=== PATIENT | female | born 1945 | race African-American/Black ===

== ENCOUNTER 2025-09-15 18:09 | Inpatient (IN) | payer BC ==
[~2025-09-15] VITALS: Ht 154.9 cm; Wt 81.8 kg
[2025-09-15 18:27] VITALS: O2SAT 94
[2025-09-15] MEDS: FUROSEMIDE 20MG/2ML VIAL IVP ONE (21:20)
[2025-09-15 21:23] LABS: BASOPHILS % 0.4 % (0.0-2.0); EOSINOPHILS % 0.0 % (0.0-5.0); HEMATOCRIT. 34.7 % (36.0-48.0); HEMOGLOBIN. 10.3 g/dL (12.0-16.0); LYMPHOCYTES % 11.0 % (20.0-50.0); MEAN PLATELET VOLUME 8.5 fl (7.4-10.4); MONOCYTES % 6.2 % (2.0-8.0); NEUTROPHILS % 82.4 % (40.0-76.0); PLATELET 179 x1000/uL (130-400); RED BLOOD CELL COUNT 3.61 mill/uL (4.2-5.4); RED CELL DISTRIBUTION WIDTH 18.9 % (11.6-14.6)
[2025-09-15 21:40] LABS: CREATININE 1.4 mg/dL (0.6-1.0)
[2025-09-15 21:41] LABS: TROPONIN I HIGH SENSITIVITY 24 ng/L (3.0-34); UREA NITROGEN BLOOD 32 mg/dL (9-23)
[2025-09-15 21:42] LABS: ASPARTATE AMINOTRANSFERASE 20 IU/L (<34)
[2025-09-15 21:43] LABS: BILIRUBIN DIRECT 0.1 mg/dL (<=3.0); BILIRUBIN TOTAL 0.4 mg/dL (0.1-1.0); PROTEIN TOTAL 6.0 g/dL (6.0-8.3)
[2025-09-15] MEDS ORDERED: MAGNESIUM/ALUMINUM HYDROXIDE/SIMETHICONE 30ML UDC PO PRN (23:45)
[2025-09-15] MEDS ORDERED: HYDROCODONE/ACETAMINOPHEN 5/325MG TABLET PO PRN (23:45)
[2025-09-15] MEDS ORDERED: CARV6.2548 PO (23:45)
[2025-09-15] MEDS ORDERED: IPRATROPIUM/ALBUTEROL 0.5-3(2.5)MG/3ML NEB NEB PRN (23:45)
[2025-09-15] MEDS ORDERED: AMLO10TA80 PO (23:45)
[2025-09-15] MEDS ORDERED: ACETAMINOPHEN 325MG TABLET PO PRN (23:45)
[2025-09-15] MEDS ORDERED: HYDR25TA78 PO (23:45)
[2025-09-15] MEDS ORDERED: APIX5TAB PO (23:45)
[2025-09-15] MEDS ORDERED: LOSA100T33 PO (23:45)
[2025-09-15] MEDS ORDERED: ZOLPIDEM TARTRATE 5MG TABLET PO PRN (23:45)
[2025-09-15] MEDS ORDERED: ATOR10TA69 PO (23:45)
[2025-09-15] MEDS ORDERED: ONDANSETRON HCL 4MG/2ML INJ IV PRN (23:45)
[2025-09-16] VITALS (7 sets, daily range): BP systolic 97–183; BP diastolic 57–92; PULSE 59–96; RESP 16–23; TEMP 35.6–36.5; O2SAT 93–99
[2025-09-16] MEDS: CLONIDINE 0.1MG TABLET PO PRN (00:04)
[2025-09-16 06:30] LABS: BASOPHILS % 0.2 % (0.0-2.0); EOSINOPHILS % 0.2 % (0.0-5.0); HEMATOCRIT. 32.8 % (36.0-48.0); HEMOGLOBIN. 10.0 g/dL (12.0-16.0); LYMPHOCYTES % 19.0 % (20.0-50.0); MEAN PLATELET VOLUME 9.0 fl (7.4-10.4); MONOCYTES % 10.4 % (2.0-8.0); NEUTROPHILS % 70.2 % (40.0-76.0); PLATELET 163 x1000/uL (130-400); RED BLOOD CELL COUNT 3.45 mill/uL (4.2-5.4); RED CELL DISTRIBUTION WIDTH 17.9 % (11.6-14.6)
[2025-09-16 07:06] LABS: CREATININE 1.3 mg/dL (0.6-1.0)
[2025-09-16 07:07] LABS: UREA NITROGEN BLOOD 27.0 mg/dL (9-23)
[2025-09-16] MEDS: AMLODIPINE 10MG TABLET PO SCH (08:30)
[2025-09-16] MEDS: LOSARTAN 100 MG TABLET PO SCH (08:30)
[2025-09-16] MEDS: CARVEDILOL 6.25 MG TABLET PO SCH (08:30)
[2025-09-16] MEDS: ATORVASTATIN CALCIUM 10MG TABLET PO SCH (08:30)
[2025-09-16] MEDS: APIXABAN 5 MG TABLET PO SCH (08:30)
[2025-09-16] MEDS: HYDRALAZINE HCL 25MG TABLET PO SCH (08:31)
[2025-09-16] MEDS ORDERED: ENOXAPARIN 40MG/0.4ML SYR SUBCUT SCH (09:00)
[2025-09-16] MEDS: PANTOPRAZOLE SODIUM 40 MG/VIAL IV SCH (09:20)
[2025-09-16] MEDS: FUROSEMIDE 40MG/4ML VIAL IVP SCH (09:20)
[2025-09-16 09:44] LABS: CLARITY URINE CLEAR (CLEAR); COLOR URINE YELLOW (YELLOW); GLUCOSE URINE NEGATIVE (NEGATIVE); KETONES URINE NEGATIVE (NEGATIVE); LEUKOCYTE ESTERASE URINE NEGATIVE (NEGATIVE); NITRITE URINE NEGATIVE (NEGATIVE); OCCULT BLOOD URINE NEGATIVE (NEGATIVE); PH URINE 5.5 (4.5-8.0); PROTEIN URINE 1+ (NEGATIVE); SPECIFIC GRAVITY URINE 1.013 (1.005-1.030); UROBILINOGEN URINE 0.2 E.U./dL (0.2-1.0)
[2025-09-16 09:55] LABS: SQUAMOUS EPITHELIAL CELL URINE FEW /lpf (RARE/1+)
[2025-09-16 09:56] LABS: MUCUS URINE 1+ /lpf (< = 2+)
[2025-09-16 09:57] LABS: RBC URINE NONE SEEN /hpf (0-2); WBC URINE 0-2 /hpf (0-2)
[2025-09-16 09:58] LABS: BACTERIA URINE 1+
[2025-09-16 10:09] LABS: *AMPHETAMINES SCREEN URINE NEGATIVE (NEGATIVE); *BARBITURATES SCREEN URINE NEGATIVE (NEGATIVE); *BENZODIAZEPINES SCREEN URINE NEGATIVE (NEGATIVE); *COCAINE SCREEN URINE NEGATIVE (NEGATIVE); METHADONE URINE SCREEN NEGATIVE (NEGATIVE)
[2025-09-16 10:10] LABS: CANNABINOID URINE SCREEN NEGATIVE (NEGATIVE); ECSTASY MDMA SCREEN URINE NEGATIVE (NEGATIVE); OPIATES URINE SCREEN NEGATIVE (NEGATIVE); PHENCYCLIDINE URINE SCREEN NEGATIVE (NEGATIVE)
[2025-09-16 17:07] LABS: TROPONIN I HIGH SENSITIVITY 24 ng/L (3.0-34)
[2025-09-16 19:30] LABS: TROPONIN I HIGH SENSITIVITY 27 ng/L (3.0-34)
[2025-09-16] MEDS: HYDRALAZINE HCL 50MG TABLET PO SCH (22:01)
[2025-09-17] VITALS: BP 105/69; PULSE 74; RESP 18; TEMP 36.5; O2SAT 95
[2025-09-17 04:00] VITALS: BP 140/75; PULSE 73; RESP 18; TEMP 36.6; O2SAT 97
[2025-09-17 06:35] LABS: BASOPHILS % 0.3 % (0.0-2.0); EOSINOPHILS % 1.2 % (0.0-5.0); HEMATOCRIT. 33.8 % (36.0-48.0); HEMOGLOBIN. 10.6 g/dL (12.0-16.0); LYMPHOCYTES % 21.3 % (20.0-50.0); MEAN PLATELET VOLUME 8.8 fl (7.4-10.4); MONOCYTES % 8.4 % (2.0-8.0); NEUTROPHILS % 68.8 % (40.0-76.0); PLATELET 161 x1000/uL (130-400); RED BLOOD CELL COUNT 3.61 mill/uL (4.2-5.4); RED CELL DISTRIBUTION WIDTH 17.9 % (11.6-14.6)
[2025-09-17 06:58] LABS: CREATININE 1.1 mg/dL (0.6-1.0); UREA NITROGEN BLOOD 20.0 mg/dL (9-23)
[2025-09-17 07:02] LABS: TRIGLYCERIDE 79.0 mg/dL (0-150)
[2025-09-17 07:03] LABS: LDL CHOLESTEROL 50.0 mg/dL (5-100)
[2025-09-17 08:00] VITALS: BP 161/83; PULSE 73; RESP 18; TEMP 35.6; O2SAT 96
[2025-09-17] MEDS: FUROSEMIDE 40MG/4ML VIAL IVP NR (09:49)
[2025-09-17 12:00] VITALS: BP 130/69; PULSE 82; RESP 18; TEMP 35.9; O2SAT 96
== END 2025-09-17 17:00 | disposition left against medical advice (07) | DRG 291 ==
LOC: ER 18:09 → 6WST 22:18 → EDBEDREQTM 22:25 → EDBEDREQ 22:25 → ENRESERV 22:36
PROVIDERS: ADMIT Internal Medicine; ATTEND Internal Medicine
DX: I11.0 Hypertensive heart disease with heart failure (principal); I50.33 Acute on chronic diastolic (congestive) heart failure; I27.20 Pulmonary hypertension, unspecified; C34.92 Malignant neoplasm of unspecified part of left bronchus or lung; Z79.01 Long term (current) use of anticoagulants; J44.9 Chronic obstructive pulmonary disease, unspecified; Z53.21 Procedure and treatment not carried out due to patient leaving prior to being seen by health care provider; I48.0 Paroxysmal atrial fibrillation; Z79.899 Other long term (current) drug therapy
CPT/HCPCS: 36415; 71045; 80048; 80061; 80076; 80305; 81003; 83735; 83880; 84443; 84484; 85025; 85379; 93005; 93970; 99285; J1938; J2470

== ENCOUNTER 2025-10-27 14:45 | Inpatient (IN) | payer BC ==
[~2025-10-27] VITALS: Ht 154.9 cm; Wt 79.4 kg
[~2025-10-27 14:45] MED LIST: AMLO10TA80 PO; APIX5TAB PO; ATOR10TA69 PO; CARV6.2548 PO; HYDR25TA78 PO; LOSA100T33 PO
[2025-10-27 16:20] LABS: BASOPHILS % 0.7 % (0.0-2.0); EOSINOPHILS % 0.3 % (0.0-5.0); HEMATOCRIT. 29.4 % (36.0-48.0); HEMOGLOBIN. 8.9 g/dL (12.0-16.0); LYMPHOCYTES % 20.7 % (20.0-50.0); MEAN PLATELET VOLUME 8.4 fl (7.4-10.4); MONOCYTES % 10.2 % (2.0-8.0); NEUTROPHILS % 68.1 % (40.0-76.0); PLATELET 276 x1000/uL (130-400); RED BLOOD CELL COUNT 3.10 mill/uL (4.2-5.4); RED CELL DISTRIBUTION WIDTH 19.6 % (11.6-14.6)
[2025-10-27 16:43] LABS: TROPONIN I HIGH SENSITIVITY 17 ng/L (3.0-34)
[2025-10-27 16:44] LABS: UREA NITROGEN BLOOD 24 mg/dL (9-23)
[2025-10-27 16:45] LABS: PROTEIN TOTAL 6.2 g/dL (6.0-8.3)
[2025-10-27 16:46] LABS: ASPARTATE AMINOTRANSFERASE 13 IU/L (<34); BILIRUBIN DIRECT 0.1 mg/dL (<=3.0); BILIRUBIN TOTAL 0.3 mg/dL (0.1-1.0)
[2025-10-27 17:00] LABS: CREATININE 1.7 mg/dL (0.6-1.0)
[2025-10-27] MEDS: FUROSEMIDE 40MG/4ML VIAL IVP ONE (18:02)
[2025-10-27 19:00] VITALS: BP 139/71; PULSE 93; RESP 18; TEMP 36.9; O2SAT 95
[2025-10-27 20:00] VITALS: BP 124/77; PULSE 91; RESP 19; TEMP 36.4; O2SAT 92
[2025-10-27 20:40] VITALS: BP 139/71; PULSE 89; RESP 22; TEMP 36.418
[2025-10-27] MEDS ORDERED: ZOLPIDEM TARTRATE 5MG TABLET PO PRN (22:00)
[2025-10-27] MEDS ORDERED: MAGNESIUM/ALUMINUM HYDROXIDE/SIMETHICONE 30ML UDC PO PRN (22:00)
[2025-10-27] MEDS ORDERED: CLONIDINE 0.1MG TABLET PO PRN (22:00)
[2025-10-27] MEDS ORDERED: ONDANSETRON HCL 4MG/2ML INJ IV PRN (22:00)
[2025-10-27] MEDS ORDERED: HYDROCODONE/ACETAMINOPHEN 5/325MG TABLET PO PRN (22:00)
[2025-10-27] MEDS ORDERED: NALOXONE HCL 0.4MG/ML VIAL IV PRN (22:15)
[2025-10-27] MEDS ORDERED: ENOXAPARIN 30MG/0.3ML SYR SUBCUT SCH (23:00)
[2025-10-28] VITALS (8 sets, daily range): BP systolic 105–146; BP diastolic 52–84; PULSE 61–92; RESP 15–19; TEMP 35.9–36.7; O2SAT 95–99
[2025-10-28] MEDS: APIXABAN 5 MG TABLET PO SCH (00:50)
[2025-10-28] MEDS: IPRATROPIUM/ALBUTEROL 0.5-3(2.5)MG/3ML NEB NEB SCH (02:00)
[2025-10-28 02:44] LABS: TROPONIN I HIGH SENSITIVITY 17 ng/L (3.0-34)
[2025-10-28] MEDS: FUROSEMIDE 40MG/4ML VIAL IVP SCH (06:38)
[2025-10-28 08:14] LABS: CLARITY URINE CLEAR (CLEAR); COLOR URINE YELLOW (YELLOW); GLUCOSE URINE NEGATIVE (NEGATIVE); KETONES URINE NEGATIVE (NEGATIVE); LEUKOCYTE ESTERASE URINE 2+ (NEGATIVE); NITRITE URINE POSITIVE (NEGATIVE); OCCULT BLOOD URINE 1+ (NEGATIVE); PH URINE 6.0 (4.5-8.0); PROTEIN URINE NEGATIVE (NEGATIVE); SPECIFIC GRAVITY URINE 1.008 (1.005-1.030); UROBILINOGEN URINE 0.2 E.U./dL (0.2-1.0)
[2025-10-28 08:33] LABS: HYALINE CASTS URINE 0-5 /lpf; MUCUS URINE 1+ /lpf (< = 2+)
[2025-10-28 08:34] LABS: RBC URINE 0-2 /hpf (0-2)
[2025-10-28 08:35] LABS: WBC URINE 0-2 /hpf (0-2)
[2025-10-28 08:36] LABS: BACTERIA URINE NONE SEEN; SQUAMOUS EPITHELIAL CELL URINE FEW /lpf (RARE/1+)
[2025-10-28 08:45] LABS: *AMPHETAMINES SCREEN URINE NEGATIVE (NEGATIVE); *BARBITURATES SCREEN URINE NEGATIVE (NEGATIVE); *BENZODIAZEPINES SCREEN URINE NEGATIVE (NEGATIVE); *COCAINE SCREEN URINE NEGATIVE (NEGATIVE)
[2025-10-28 08:46] LABS: CANNABINOID URINE SCREEN NEGATIVE (NEGATIVE); ECSTASY MDMA SCREEN URINE NEGATIVE (NEGATIVE); METHADONE URINE SCREEN NEGATIVE (NEGATIVE); OPIATES URINE SCREEN NEGATIVE (NEGATIVE); PHENCYCLIDINE URINE SCREEN NEGATIVE (NEGATIVE)
[2025-10-28] MEDS ORDERED: APIXABAN 5 MG TABLET PO SCH (09:00)
[2025-10-28] MEDS: LOSARTAN 100 MG TABLET PO SCH (09:15)
[2025-10-28] MEDS: AMLODIPINE 10MG TABLET PO SCH (09:16)
[2025-10-28] MEDS: CARVEDILOL 6.25 MG TABLET PO SCH (09:16)
[2025-10-28] MEDS: HYDRALAZINE HCL 25MG TABLET PO SCH (09:19)
[2025-10-28] MEDS: PANTOPRAZOLE SODIUM 40 MG/VIAL IV SCH (09:20)
[2025-10-28 12:42] LABS: BASOPHILS % 0.6 % (0.0-2.0); EOSINOPHILS % 0.6 % (0.0-5.0); HEMATOCRIT. 32.5 % (36.0-48.0); HEMOGLOBIN. 9.8 g/dL (12.0-16.0); LYMPHOCYTES % 21.8 % (20.0-50.0); MEAN PLATELET VOLUME 8.9 fl (7.4-10.4); MONOCYTES % 9.3 % (2.0-8.0); NEUTROPHILS % 67.7 % (40.0-76.0); PLATELET 288 x1000/uL (130-400); RED BLOOD CELL COUNT 3.43 mill/uL (4.2-5.4); RED CELL DISTRIBUTION WIDTH 19.5 % (11.6-14.6)
[2025-10-28 12:58] LABS: CREATININE 1.6 mg/dL (0.6-1.0); UREA NITROGEN BLOOD 23.0 mg/dL (9-23)
[2025-10-28 13:05] LABS: TROPONIN I HIGH SENSITIVITY 20 ng/L (3.0-34)
[2025-10-28] MEDS: ATORVASTATIN CALCIUM 10MG TABLET PO SCH (20:44)
[2025-10-28] MEDS: ACETAMINOPHEN 325MG TABLET PO PRN (23:27)
[2025-10-29] VITALS (11 sets, daily range): BP systolic 98–128; BP diastolic 50–78; PULSE 75–105; RESP 16–20; TEMP 36.1–37.7; O2SAT 95–99
[2025-10-29 08:10] LABS: BASOPHILS % 0.8 % (0.0-2.0); EOSINOPHILS % 0.4 % (0.0-5.0); HEMATOCRIT. 29.3 % (36.0-48.0); HEMOGLOBIN. 8.8 g/dL (12.0-16.0); LYMPHOCYTES % 27.1 % (20.0-50.0); MEAN PLATELET VOLUME 8.4 fl (7.4-10.4); MONOCYTES % 12.5 % (2.0-8.0); NEUTROPHILS % 59.2 % (40.0-76.0); PLATELET 259 x1000/uL (130-400); RED BLOOD CELL COUNT 3.12 mill/uL (4.2-5.4); RED CELL DISTRIBUTION WIDTH 19.1 % (11.6-14.6)
[2025-10-29 08:17] LABS: CREATININE 1.8 mg/dL (0.6-1.0); UREA NITROGEN BLOOD 24.0 mg/dL (9-23)
[2025-10-29] MEDS ORDERED: DEXA0.75 MT (10:59)
[2025-10-30] VITALS (7 sets, daily range): BP systolic 103–134; BP diastolic 50–83; PULSE 101–111; RESP 15–19; TEMP 36.4–37.2; O2SAT 92–100
[2025-10-30 08:40] LABS: BASOPHILS % 0.6 % (0.0-2.0); EOSINOPHILS % 0.8 % (0.0-5.0); HEMATOCRIT. 29.8 % (36.0-48.0); HEMOGLOBIN. 8.8 g/dL (12.0-16.0); LYMPHOCYTES % 21.9 % (20.0-50.0); MEAN PLATELET VOLUME 8.6 fl (7.4-10.4); MONOCYTES % 11.2 % (2.0-8.0); NEUTROPHILS % 65.5 % (40.0-76.0); PLATELET 226 x1000/uL (130-400); RED BLOOD CELL COUNT 3.04 mill/uL (4.2-5.4); RED CELL DISTRIBUTION WIDTH 19.6 % (11.6-14.6)
[2025-10-30 08:59] LABS: TROPONIN I HIGH SENSITIVITY 18 ng/L (3.0-34)
[2025-10-30] MEDS ORDERED: FURO-151 MT (09:20)
[2025-10-30 12:25] LABS: CREATININE 1.9 mg/dL (0.6-1.0); UREA NITROGEN BLOOD 20.0 mg/dL (9-23)
[2025-10-31] VITALS: BP 126/57; PULSE 96; RESP 19; TEMP 37; O2SAT 98
[2025-10-31 08:00] VITALS: BP 127/61; PULSE 98; RESP 14; TEMP 36.5; O2SAT 95
[2025-10-31 08:25] VITALS: PULSE 88; O2SAT 98
[2025-10-31 12:00] VITALS: BP 121/64; PULSE 94; RESP 15; TEMP 36.4; O2SAT 95
[2025-10-31 12:11] VITALS: BP 121/64; PULSE 94; RESP 15; TEMP 97.6
== END 2025-10-31 15:10 | disposition home or self-care (01) | DRG 291 ==
LOC: ER 14:45 → 6WST 17:23 → EDBEDREQ 17:27 → EDBEDREQTM 17:27
PROVIDERS: ADMIT Internal Medicine; ATTEND Internal Medicine
DX: I11.0 Hypertensive heart disease with heart failure (principal); I50.33 Acute on chronic diastolic (congestive) heart failure; I27.20 Pulmonary hypertension, unspecified; Z79.01 Long term (current) use of anticoagulants; D64.9 Anemia, unspecified; J44.9 Chronic obstructive pulmonary disease, unspecified; I48.0 Paroxysmal atrial fibrillation; R00.0 Tachycardia, unspecified; I49.1 Atrial premature depolarization; Z79.899 Other long term (current) drug therapy; Z85.118 Personal history of other malignant neoplasm of bronchus and lung
CPT/HCPCS: 36415; 70486; 71045; 73552; 73590; 73700; 80048; 80076; 80305; 81003; 83735; 83880; 84443; 84484; 85025; 93005; 93306; 93923; 93970; 94070; 94640; 99291; A4606; A4615; J1938; J2470